=== PATIENT | male | born 1995 | race Caucasian/White ===

== ENCOUNTER 2025-10-06 16:19 | Emergency (ER) | payer MEDICAID ==
[~2025-10-06] VITALS: Ht 167.6 cm; Wt 82.0 kg
[2025-10-06 16:31] VITALS: BP 129/84; TEMP 36.9; O2SAT 100
[2025-10-06 16:34] VITALS: PULSE 86; RESP 18; O2SAT 99
[2025-10-06] MEDS: KETOROLAC 30MG/ML VIAL IM ONE (19:35)
[2025-10-06] MEDS ORDERED: DICL100G46 TP (20:12)
[2025-10-06] MEDS ORDERED: TOPUD MT (20:12)
== END 2025-10-06 20:22 | disposition home or self-care (01) ==
LOC: ER 17:26
DX: G89.29 Other chronic pain (principal); M25.561 Pain in right knee
CPT/HCPCS: 73560; 96372; 99283; J1885; Z7610